=== PATIENT | male | born 1960 | race African-American/Black ===

== ENCOUNTER 2016-10-20 10:00 | Inpatient (IN) | payer BC ==
[~2016-10-20] VITALS: Ht 182.9 cm; Wt 131.5 kg
[2016-10-20 10:00] VITALS: BP_SYST 158
[2016-10-20] MEDS ORDERED: KETOROLAC TROMETHAMINE 30 MG VIAL IVP ONE (10:30)
[2016-10-20 10:56] LABS: BASOPHILS # (AUTO) 0.3 K/uL (0.0-0.2); BASOPHILS % (AUTO) 3.3 % (0.0-2.0); EOSINOPHILS # (AUTO) 0.3 K/uL (0.0-0.4); EOSINOPHILS % (AUTO) 2.6 % (0.0-4.0); HEMATOCRIT 44.2 % (36-54); HEMOGLOBIN 14.2 g/dL (14.0-18.0); LYMPHOCYTES # (AUTO) 2.7 K/uL (1.0-5.5); LYMPHOCYTES % (AUTO) 26.6 % (20.5-51.5); MEAN CORPUSCULAR HEMOGLOBIN 27 pg (27-31); MEAN CORPUSCULAR HGB CONC 32 % (32-36); MEAN CORPUSCULAR VOLUME 85 fL (79.0-98.0); MONOCYTES # (AUTO) 0.7 K/uL (0.0-1.0); MONOCYTES % (AUTO) 7.3 % (1.7-9.3); NEUTROPHILS % (AUTO) 60.2 % (40.0-70.0); PLATELET COUNT (AUTO) 340 K/uL (130-430); RED BLOOD CELL COUNT(AUTO) 5.23 MIL/uL (4.2-6.2); RED CELL DISTRIBUTION WIDTH 14.7 % (9.0-15.0)
[2016-10-20 10:57] LABS: BILIRUBIN,URINE NEGATIVE (NEGATIVE); BLOOD, URINE 1+ (NEGATIVE); CLARITY/URINE CLEAR (CLEAR); COLOR,URINE YELLOW (YELLOW); GLUCOSE,URINE NEGATIVE (NEGATIVE); KETONES,URINE NEGATIVE (NEGATIVE); LEUKOCYTE ESTERASE ,URINE NEGATIVE (NEGATIVE); NITRITE, URINE NEGATIVE (NEGATIVE); PH,URINE 5.5 (5.0-8.0); PROTEIN URINE TRACE (NEGATIVE)
[2016-10-20 11:00] LABS: CALCIUM 8.9 mg/dL (8.4-11.0); CREATININE 1.22 mg/dL (0.55-1.30); POTASSIUM 3.3 mmol/L (3.5-5.1)
[2016-10-20 11:08] LABS: INR 0.9 (0.80-1.20); PROTHROMBIN TIME 10.3 SECS (9.5-12.5)
[2016-10-20 11:10] LABS: ALBUMIN 3.8 g/dL (3.4-4.8); TOTAL BILIRUBIN 0.7 mg/dL (0.0-1.0); TOTAL PROTEIN, SERUM 8.5 g/dL (6.4-8.3)
[2016-10-20 11:18] LABS: BACTERIA,URINE FEW /HPF (None Seen); MUCUS,URINE 1+ /LPF (None Seen); WBC,URINE 0-3 /HPF (0-3)
[2016-10-20] MEDS ORDERED: IOHEXOL 100 ML IV ONE (11:45)
[2016-10-20] MEDS ORDERED: enalapril (12:18)
[2016-10-20] MEDS ORDERED: hctz (12:18)
[2016-10-20] MEDS ORDERED: ASPIRIN 81 MG TAB.CHEW PO ONE (13:00)
[2016-10-20 13:04] VITALS: BP_SYST 135
[2016-10-20] MEDS ORDERED: ASPIRIN 81 MG TAB.CHEW ONE (13:05)
[2016-10-20] MEDS ORDERED: HYDR25TA4 PO (13:39)
[2016-10-20] MEDS ORDERED: ENAL10TA PO (13:39)
[2016-10-20] MEDS ORDERED: CYCL-10 PO (13:39)
[2016-10-20] MEDS ORDERED: ALLO300T2 PO (13:40)
[2016-10-20] MEDS ORDERED: NAPR-688 PO (13:40)
[2016-10-20] MEDS ORDERED: POTASSIUM CHLORIDE 10 MEQ TAB.PRT.SR PO ONE (16:15)
[2016-10-20 16:36] VITALS: BP_SYST 136
[2016-10-20] MEDS: LISINOPRIL 20 MG TABLET PO ONE ×2 (17:49→17:59)
[2016-10-20] MEDS: HYDROcodone/ACETAMIN 5-325 MG TAB (NORCO/ VICODIN) PO PRN (17:50)
[2016-10-20] MEDS ORDERED: ACETAMINOPHEN 325 MG TABLET PO PRN ×2 (18:00)
[2016-10-20] MEDS ORDERED: FAMOTIDINE 20 MG TABLET PO SCH (18:00)
[2016-10-20] MEDS ORDERED: FAMOTIDINE 20 MG TABLET PO ONE (18:00)
[2016-10-20] MEDS ORDERED: ZOLPIDEM TARTRATE 5 MG TABLET PO PRN ×2 (18:00)
[2016-10-20] MEDS: cloNIDine HCL 0.1 MG TABLET PO PRN (22:47)
[2016-10-21 00:18] VITALS: BP_SYST 140
[2016-10-21 03:56] VITALS: BP_SYST 142
[2016-10-21 06:52] LABS: BASOPHILS # (AUTO) 0.1 K/uL (0.0-0.2); BASOPHILS % (AUTO) 0.6 % (0.0-2.0); EOSINOPHILS # (AUTO) 0.4 K/uL (0.0-0.4); EOSINOPHILS % (AUTO) 3.9 % (0.0-4.0); HEMOGLOBIN 13.4 g/dL (14.0-18.0); LYMPHOCYTES # (AUTO) 3.7 K/uL (1.0-5.5); MEAN CORPUSCULAR HEMOGLOBIN 28 pg (27-31); MEAN CORPUSCULAR HGB CONC 33 % (32-36); MEAN CORPUSCULAR VOLUME 85 fL (79.0-98.0); MONOCYTES # (AUTO) 0.6 K/uL (0.0-1.0); MONOCYTES % (AUTO) 6.5 % (1.7-9.3); NEUTROPHILS # (AUTO) 4.7 K/uL (1.8-7.7); PLATELET COUNT (AUTO) 295 K/uL (130-430); RED BLOOD CELL COUNT(AUTO) 4.82 MIL/uL (4.2-6.2); WHITE BLOOD COUNT (AUTO) 9.5 K/uL (4.8-10.8)
[2016-10-21 07:47] LABS: THYROID STIMULATING HORMONE 0.57 uIu/mL (0.34-4.82)
[2016-10-21 07:48] LABS: CALCIUM 8.9 mg/dL (8.4-11.0); POTASSIUM 3.6 mmol/L (3.5-5.1)
[2016-10-21 07:49] LABS: CREATININE 1.2 mg/dL (0.55-1.30)
[2016-10-21 07:53] LABS: ALBUMIN 3.5 g/dL (3.4-4.8); TOTAL BILIRUBIN 0.8 mg/dL (0.0-1.0); TOTAL PROTEIN, SERUM 7.7 g/dL (6.4-8.3)
[2016-10-21] MEDS ORDERED: LISINOPRIL 20 MG TABLET PO SCH (09:00)
[2016-10-21] MEDS ORDERED: FAMOTIDINE 20 MG TABLET PO SCH (09:00)
[2016-10-21] MEDS ORDERED: HYDROCHLOROTHIAZIDE 12.5 MG CAPSULE (HCTZ) PO SCH (09:00)
[2016-10-21 09:20] VITALS: BP_SYST 173
[2016-10-21] MEDS: cloNIDine HCL 0.1 MG TABLET PO PRN (09:35)
[2016-10-21 12:55] VITALS: BP_SYST 159
[2016-10-21] MEDS: HYDROcodone/ACETAMIN 5-325 MG TAB (NORCO/ VICODIN) PO PRN (13:36)
[2016-10-21 15:56] VITALS: BP_SYST 169
[2016-10-21 18:02] VITALS: BP_SYST 169
== END 2016-10-21 18:35 | disposition home or self-care (01) | DRG 552 ==
LOC: SED 10:00 → SMU 12:49 → STU 23:30
PROVIDERS: ADMIT Internal Medicine; ATTEND Internal Medicine
DX: M47.814 Spondylosis without myelopathy or radiculopathy, thoracic region (principal); I11.9 Hypertensive heart disease without heart failure; I77.819 Aortic ectasia, unspecified site; R07.89 Other chest pain; M10.9 Gout, unspecified; E66.9 Obesity, unspecified; E87.6 Hypokalemia; Z82.49 Family history of ischemic heart disease and other diseases of the circulatory system; Z68.39 Body mass index [BMI] 39.0-39.9, adult; Z79.82 Long term (current) use of aspirin
CPT/HCPCS: 36415; 71260-TC; 80053; 80061; 81000-TC; 83880; 84443-TC; 84484; 85025; 85379; 85610-TC; 85730-TC; 93005; 93306; 96374; 99285; J1885; Q9967